=== PATIENT | male | born 1955 | race Caucasian/White ===

== ENCOUNTER 2017-11-04 07:39 | Day surgery (SDC) | payer BC ==
[~2017-11-04 07:39] MED LIST: Lactated Ringers 1,000 ML IV SCH; Sodium Chloride 0.9% 10 ML Syringe FLUSH PRN; Sodium Chloride 0.9% 2.5 ML Syringe FLUSH PRN
[2017-11-04] MEDS ORDERED: Lidocaine 2% 5 ML SDV ONE (08:12)
[2017-11-04] MEDS ORDERED: fentaNYL 100 MCG/2 ML SDV ONE ×2 (08:12→09:03)
[2017-11-04] MEDS ORDERED: Propofol 200 MG/20 ML SDV ONE (08:12)
--- NOTE | 2017-11-04 08:14 | PCM.PREANE ---
Preanesthetic Assessment - Anesthesia/Transfusion/Family Hx Anesthesia History: Prior Anesthesia Without Reaction Family History of Anesthesia Reaction: No Transfusion History: No Prior Transfusion(s) Intubation History: Unknown - Review of Systems General: No Symptoms Pulmonary: No Symptoms Cardiovascular: No Symptoms Gastrointestinal: No Symptoms, Other (screening) Neurological: No Symptoms Other: Reports: None - Physical Assessment Height: 1.83 m Weight: 105.687 kg ASA Class: 3 Mental Status: Alert & Oriented x3 Airway Class: Mallampati = 2 Dentition: Reports: Normal Dentition Thyro-Mental Finger Breadths: 2 Mouth Opening Finger Breadths: 2 ROM/Head Extension: Limited/Partial Lungs: Clear to Auscultation, Normal Respiratory Effort Cardiovascular: Regular Rate, Regular Rhythm - Lab Values: Laboratory Last Values POC Glucose 136 mg/dL (60-110) H 11/04/17 08:06 - Allergies Allergies/Adverse Reactions: Allergies Allergy/AdvReac Type Severity Reaction Status Date / Time Sulfa (Sulfonamide Allergy Airway Verified 10/30/17 11:23 Antibiotics) Tightness - Blood Blood Available: No - Anesthesia Plan Pre-Op Medication Ordered: None - Acknowledgements Anesthesia Type Planned: MAC Pt an Appropriate Candidate for the Planned Anesthesia: Yes Alternatives and Risks of Anesthesia Discussed w Pt/Guardian: Yes Pt/Guardian Understands and Agrees with Anesthesia Plan: Yes PreAnesthesia Questionnaire HEENT History: Reports: Other (See Below) Other HEENT History: URI 3 weeks ago, just finished antibiotics Cardiovascular History: Reports: Hypertension Gastrointestinal History: Reports: None Genitourinary History: Reports: BPH Musculoskeletal History: Reports: Gout Endocrine/Metabolic History: Reports: Diabetes, Type II, Hypothyroidism, Obesity /BMI 30+ - Past Surgical History GI Surgical History: Reports: Colonoscopy (10 years ago, normal) - SUBSTANCE USE Tobacco Use Within Last Twelve Months: Smokeless Tobacco Recreational Drug Use History: No - HOME MEDS Home Medications: Home Meds Allopurinol [Zyloprim] 300 mg PO DAILY 10/30/17 [History] Losartan Potassium 50 mg PO DAILY 10/30/17 [History] Montelukast Sodium 10 mg PO DAILY 10/30/17 [History] [place]-3S/DHA/Epa/Fish Oil [[place] Power 1,050 mg Softgel] 1,050 mg PO DAILY 10/30 [History] Tamsulosin HCl 0.4 mg PO DAILY 10/30/17 [History] Thyroid,Pork [Wp Thyroid] 130 mg PO DAILY 10/30/17 [History] buPROPion [buPROPion XL] 150 mg PO DAILY 10/30/17 [History] metFORMIN HCl [Metformin HCl] 1,000 mg PO BIDMEALS 10/30/17 [History] - CURRENT (IN HOUSE) MEDS Current Meds: Current Medications Lactated Ringer's (Ringers, Lactated) 1,000 mls @ 125 mls/hr IV ASDIRECTED SIMA Sodium Chloride (Saline Flush) 10 ml FLUSH ASDIRECTED PRN PRN Reason: Keep Vein Open Sodium Chloride (Saline Flush) 2.5 ml FLUSH ASDIRECTED PRN PRN Reason: Keep Vein Open Sodium Chloride (Saline Flush) 10 ml FLUSH ASDIRECTED PRN PRN Reason: Keep Vein Open Sodium Chloride (Saline Flush) 2.5 ml FLUSH ASDIRECTED PRN PRN Reason: Keep Vein Open
--- NOTE | 2017-11-04 09:33 | PCM.OPNOTE ---
- General Post-Op/Procedure Note Date of Surgery/Procedure: 11/04/17 Operative Procedure(s): colonoscopy with polypectomies Findings: 3 transverse colon polyps 2 sigmoid colon polyps 6 rectal polyps 14 minutes from cecum to anus Pre Op Diagnosis: screening colonoscopy, family history of colon cancer Post-Op Diagnosis: multiple colon and rectal polyps. See findings for number and location Anesthesia Technique: MAC Primary Surgeon: Martha Fonseca Secondary Surgeon: Jeff Ashton Complications: none
--- NOTE | 2017-11-04 09:58 | PCM48HPAN ---
Post Anesthesia Note - EVALUATION WITHIN 48HRS OF ANESTHETIC Vital Signs in Normal Range: Yes Patient Participated in Evaluation: Yes Respiratory Function Stable: Yes Airway Patent: Yes Cardiovascular Function Stable: Yes Hydration Status Stable: Yes Pain Control Satisfactory: Yes Nausea and Vomiting Control Satisfactory: Yes Mental Status Recovered: Yes Resp Rate: 12 - COMMENTS/OBSERVATIONS Free Text/Narrative:: no anesthesia problems
--- NOTE | 2017-11-04 11:18 | OR ---
SURGEON: CHRIS TRAVIS MD DATE OF PROCEDURE: 11/04/2017 PREOPERATIVE DIAGNOSIS: Screening colonoscopy. POSTOPERATIVE DIAGNOSES: 1. Transverse colon polyp x3. 2. Sigmoid colon polyp x2. 3. Rectal polyp x6. PROCEDURE PERFORMED: Colonoscopy. FISH PROTECTOR: Dr. Sukhjinder Ashton. ANESTHESIA: MAC. INSTRUMENT USED: Olympus colonoscope. EXTENT OF EXAM: To the cecum. PREPARATION: Good. LIMITATIONS: None. INDICATIONS FOR EXAMINATION: The patient is a 62-year-old male who presents for a screening colonoscopy. His father had colon cancer at the age of 65. The patient's last colonoscopy was normal. He is having no symptoms. We discussed the need for colonoscopy. We discussed the procedure, expected perioperative course, and risks including bleeding, infection, or damage to surrounding structures including perforation. The patient verbalized understanding and wishes to proceed. PROCEDURE IN DETAIL: The patient was brought into the endoscopy suite and placed in the left lateral decubitus position. A time-out was completed verifying the patient's name, age, date of , allergies, and procedure to be performed. Monitored anesthesia care was induced and continuous oxygen was provided via nasal cannula throughout the procedure. After adequate sedation was achieved, a digital rectal exam was performed. This exam was within normal limits. A well lubricated colonoscope was inserted into the rectum and advanced under direct visualization to the level of cecum. The cecum was identified by both visual and anatomic landmarks. A photograph was taken to the cecal cap. I attempted to retroflex the scope within the cecum, but was unable to do so. I was able to attain a good view, however, of the cecal cap and its underside. The scope was then fully withdrawn while examining the color, texture, anatomy, and integrity of the mucosa from the cecum to the anal canal. The patient was found to have multiple 2-3 mm sessile polyps throughout the colon. There were 3 transverse colon polyps, 2 sigmoid colon polyps, and 6 rectal polyps. These were all removed using a cold biopsy forceps and sent to pathology. The scope was then brought into the rectum and retroflexed to allow visualization of the anal canal opening. This appeared normal and a photograph was taken. The scope was then straightened out and removed from the patient. The cecum to anus time was 14 minutes. The patient tolerated the procedure well and was taken to PACU in stable condition. ENDOSCOPIC DIAGNOSES: 1. Transverse colon polyp x3. 2. Sigmoid colon polyp x2. 3. Rectal polyp x6. RECOMMENDATIONS: Follow up in clinic in 2 weeks. LUCIO CARRANZA /[id number]
== END 2017-11-04 09:50 | disposition home or self-care (01) ==
LOC: MW.SDS 07:39
PROVIDERS: ATTEND Surgery
DX: Z12.11 Encounter for screening for malignant neoplasm of colon (principal); K62.1 Rectal polyp; K63.5 Polyp of colon; I10 Essential (primary) hypertension; E11.9 Type 2 diabetes mellitus without complications; N40.0 Benign prostatic hyperplasia without lower urinary tract symptoms; E03.9 Hypothyroidism, unspecified; E66.9 Obesity, unspecified; M10.9 Gout, unspecified; F17.290 Nicotine dependence, other tobacco product, uncomplicated; Z80.0 Family history of malignant neoplasm of digestive organs; Z88.2 Allergy status to sulfonamides; Z91.09 Other allergy status, other than to drugs and biological substances; Z79.899 Other long term (current) drug therapy; Z79.84 Long term (current) use of oral hypoglycemic drugs; Z98.890 Other specified postprocedural states; Z68.31 Body mass index [BMI] 31.0-31.9, adult
CPT/HCPCS: 45380; 82962; 88305; J3010; J7120; 00812; J2704